=== PATIENT | male | born 1980 | race Caucasian/White ===

== ENCOUNTER 2021-05-20 02:00 | Inpatient (IN) ==
[2021-05-20] MEDS ORDERED: 0.9 % Sodium Chloride 1,000 ML IVC ONE (03:26)
[2021-05-20] MEDS ORDERED: Folic Acid 1 MG in 0.9 % Sodium Chloride 50 ML IVPB ONE (03:26)
[2021-05-20] MEDS ORDERED: Thiamine (B-1) 200 MG in 0.9 % Sodium Chloride 50 ML IVPB ONE (03:26)
[2021-05-20 03:37] LABS: Basophils # 0.1 K/mcL (0.0-0.2); Basophils % 1.3 %; Eosinophils # 0.1 K/mcL (0.0-0.6); Eosinophils % 1.5 %; Hematocrit 40.8 % (37.5-50.1); Hemoglobin 14.1 g/dL (12.9-16.9); Immature Granulocytes % 0.2 % (0-4); Lymphocytes # 1.6 K/mcL (0.6-4.6); Lymphocytes % 33.5 %; Mean Corpuscular HGB Conc 34.6 g/dL (31.6-35.5); Mean Corpuscular Hemoglobin 31.4 pg (28.0-33.3); Mean Corpuscular Volume 90.9 fL (83.0-100.0); Mean Platelet Volume 9.1 fL (9.4-12.4); Monocytes # 0.6 K/mcL (0.0-1.3); Monocytes % 12.8 %; Neutrophils # 2.4 K/mcL (1.6-8.9); Platelet Count 128 K/mcL (140-400); Red Blood Count 4.49 M/mcL (4.19-5.50); Segmented Neutrophils % 50.7 %; White Blood Count 4.7 K/mcL (4.3-11.1)
[2021-05-20] MEDS ORDERED: MVI, adult with vitamin K 10 ML, Folic Acid 1 MG, Thiamine (B-1) 200 MG in 0.9 % Sodi... IVC ONE ×3 (03:45→04:00)
[2021-05-20 03:46] LABS: Alanine Aminotransferase 171 Units/L (7-52); Albumin 5.1 g/dL (3.5-5.7); Albumin/Globulin Ratio 2.1 (1.1-2.2); Alkaline Phosphatase 79 Units/L (34-104); Aspartate Amino Transferase 255 Units/L (13-39); BUN/Creatinine Ratio 8 (6-26); Bilirubin,Direct 0.2 mg/dL (0.0-0.2); Bilirubin,Indirect 0.8 mg/dL (0.0-1.0); Blood Urea Nitrogen 6 mg/dL (6-20); Calcium 9.4 mg/dL (8.6-10.3); Carbon Dioxide 23 mEq/L (23-29); Chloride 96 mEq/L (98-107); Ethanol 403 mg/dL (Less than 10); Globulin 2.4 g/dL (2.4-3.5); Glucose 95 mg/dL (70-105); Lipase 36 Units/L (11-82); Osmolality,Calculated 281 (280-300); Potassium 3.9 mEq/L (3.5-5.1); Sodium 137 mEq/L (136-145); Total Protein 7.5 g/dL (6.4-8.9); eGFR For African Americans > 60 (> 60); eGFR For Non-African Americans > 60 (> 60)
[2021-05-20 07:47] LABS: Bilirubin,Urine Negative (Negative); Blood,Urine Negative (Negative); Clarity,Urine Clear (Clear); Color,Urine Colorless (Yellow); Glucose,Urine (UA) Normal (Normal); Ketones,Urine Negative (Negative); Leukocyte Esterase,Urine Negative (Negative); Nitrite,Urine Negative (Negative); PH,Urine 6.5 pH Units (5.0-8.0); Protein,Urine Negative (Neg-Trace); Specific Gravity,Urine 1.005 (1.010-1.025); Urobilinogen,Urine Normal (Normal)
[2021-05-20] MEDS ORDERED: Naloxone 0.4 MG/ML INJ IVP PRN (07:47)
[2021-05-20] MEDS ORDERED: *HR* HYDROcodone/Acet 5/325 mg TABLET PO PRN (07:47)
[2021-05-20 07:52] LABS: Amphetamine Screen,Urine Negative ng/mL (Cutoff=1000); Barbiturate Screen,Urine Negative ng/mL (Cutoff=200)
[2021-05-20 07:53] LABS: Benzodiazepines Screen,Urine Negative ng/mL (Cutoff=300); Cannabinoid Screen,Urine Negative ng/mL (Cutoff = 50); Cocaine Screen,Urine Negative ng/mL (Cutoff= 300); Opiate Screen,Urine Negative ng/mL (Cutoff=300); Phencyclidine Screen,Urine Negative ng/mL (Cutoff=25)
[2021-05-20] MEDS: *HR* LORazepam 2 MG/ML VIAL IVP PRN ×3 (08:19→23:53)
[2021-05-20] MEDS: 0.9 % Sodium Chloride 1,000 ML IVC SCH ×2 (08:19→19:49)
[2021-05-20 08:59] LABS: INR 0.8; Prothrombin Time 9.2 Seconds (9.4-12.1)
[2021-05-20] MEDS: Gabapentin 400 MG CAPSULE PO SCH ×3 (10:10→19:48)
[2021-05-20] MEDS ORDERED: Gabapentin 400 MG CAPSULE PO PRN (23:36)
[2021-05-21 01:18] LABS: Red Cell Distribution Width 19.3 % (11.5-14.5)
[2021-05-21 01:20] LABS: Immature Platelets 4.3 % (1.1-6.1); Mean Corpuscular HGB Conc 33.3 g/dL (31.6-35.5); Mean Corpuscular Hemoglobin 31.5 pg (28.0-33.3); Mean Corpuscular Volume 94.4 fL (83.0-100.0); Mean Platelet Volume 9.3 fL (9.4-12.4); Platelet Count 102 K/mcL (140-400); Red Blood Count 4.13 M/mcL (4.19-5.50); White Blood Count 3.4 K/mcL (4.3-11.1)
[2021-05-21 01:24] LABS: INR 0.9
[2021-05-21 01:35] LABS: Alanine Aminotransferase 127 Units/L (7-52); Albumin 4.1 g/dL (3.5-5.7); Albumin/Globulin Ratio 1.7 (1.1-2.2); Alkaline Phosphatase 98 Units/L (34-104); Aspartate Amino Transferase 172 Units/L (13-39); BUN/Creatinine Ratio 17 (6-26); Blood Urea Nitrogen 16 mg/dL (6-20); Calcium 9.3 mg/dL (8.6-10.3); Carbon Dioxide 25 mEq/L (23-29); Chloride 102 mEq/L (98-107); Globulin 2.4 g/dL (2.4-3.5); Glucose 131 mg/dL (70-105); Magnesium 1.4 mg/dL (1.6-2.6); Osmolality,Calculated 285 (280-300); Phosphorous 4.5 mg/dL (2.7-4.5); Potassium 3.9 mEq/L (3.5-5.1); Sodium 136 mEq/L (136-145); Total Protein 6.5 g/dL (6.4-8.9); eGFR For African Americans > 60 (> 60); eGFR For Non-African Americans > 60 (> 60)
[2021-05-21 03:44] LABS: Hepatitis B Surface Antigen Nonreactive (Nonreactive)
[2021-05-21 04:12] LABS: Hepatitis C Virus Antibody Nonreactive (Nonreactive)
[2021-05-21 04:13] LABS: Hepatitis B Core IgM Nonreactive (Nonreactive)
[2021-05-21 04:15] LABS: Hepatitis A Antibody IgM Nonreactive (Nonreactive)
[2021-05-21] MEDS: *HR* LORazepam 2 MG/ML VIAL IVP PRN ×4 (05:04→21:13)
[2021-05-21] MEDS: Nicotine 21 MG PATCH.TD24 TD SCH (08:07)
[2021-05-21 15:36] LABS: Basophils % 0.9 %; Eosinophils # 0.1 K/mcL (0.0-0.6); Eosinophils % 1.7 %; Immature Granulocytes % 0.3 % (0-4); Lymphocytes # 0.8 K/mcL (0.6-4.6); Lymphocytes % 22.6 %; Monocytes # 0.4 K/mcL (0.0-1.3); Monocytes % 10.4 %; Neutrophils # 2.2 K/mcL (1.6-8.9); Segmented Neutrophils % 64.1 %
[2021-05-21] MEDS: QUEtiapine Fumarate 100 MG TABLET PO SCH (20:07)
[2021-05-22 05:40] LABS: Red Cell Distribution Width 18.4 % (11.5-14.5)
[2021-05-22 05:41] LABS: Hematocrit 40.5 % (37.5-50.1); Hemoglobin 13.4 g/dL (12.9-16.9); Immature Platelets 7.5 % (1.1-6.1); Mean Corpuscular HGB Conc 33.1 g/dL (31.6-35.5); Mean Corpuscular Hemoglobin 30.9 pg (28.0-33.3); Mean Corpuscular Volume 93.5 fL (83.0-100.0); Mean Platelet Volume 10.8 fL (9.4-12.4); Red Blood Count 4.33 M/mcL (4.19-5.50); White Blood Count 3.9 K/mcL (4.3-11.1)
[2021-05-22 05:54] LABS: INR 0.9; Prothrombin Time 9.5 Seconds (9.4-12.1)
[2021-05-22 06:05] LABS: Alanine Aminotransferase 96 Units/L (7-52); Albumin 4.5 g/dL (3.5-5.7); Albumin/Globulin Ratio 1.9 (1.1-2.2); Alkaline Phosphatase 70 Units/L (34-104); Aspartate Amino Transferase 88 Units/L (13-39); BUN/Creatinine Ratio 16 (6-26); Bilirubin,Total 0.9 mg/dL (0.3-1.0); Blood Urea Nitrogen 14 mg/dL (6-20); Calcium 9.9 mg/dL (8.6-10.3); Carbon Dioxide 26 mEq/L (23-29); Chloride 101 mEq/L (98-107); Globulin 2.4 g/dL (2.4-3.5); Glucose 87 mg/dL (70-105); Magnesium 1.7 mg/dL (1.6-2.6); Osmolality,Calculated 284 (280-300); Phosphorous 4.9 mg/dL (2.7-4.5); Potassium 3.8 mEq/L (3.5-5.1); Sodium 137 mEq/L (136-145); Total Protein 6.9 g/dL (6.4-8.9); eGFR For African Americans > 60 (> 60); eGFR For Non-African Americans > 60 (> 60)
[2021-05-22] MEDS: Nicotine 21 MG PATCH.TD24 TD SCH (09:10)
[2021-05-22] MEDS: *HR* LORazepam 2 MG/ML VIAL IVP PRN ×4 (09:15→22:44)
[2021-05-22] MEDS: Ondansetron 4 MG/2 ML VIAL IVP PRN (17:45)
[2021-05-22] MEDS: QUEtiapine Fumarate 100 MG TABLET PO SCH (21:10)
[2021-05-23 01:20] LABS: Hematocrit 41.7 % (37.5-50.1); Hemoglobin 13.6 g/dL (12.9-16.9); Immature Platelets 7.7 % (1.1-6.1); Mean Corpuscular HGB Conc 32.6 g/dL (31.6-35.5); Mean Platelet Volume 10.3 fL (9.4-12.4); Red Blood Count 4.39 M/mcL (4.19-5.50); White Blood Count 5.4 K/mcL (4.3-11.1)
[2021-05-23 01:26] LABS: INR 0.8; Prothrombin Time 9.2 Seconds (9.4-12.1)
[2021-05-23 01:37] LABS: Alanine Aminotransferase 86 Units/L (7-52); Albumin 4.5 g/dL (3.5-5.7); Albumin/Globulin Ratio 1.8 (1.1-2.2); Alkaline Phosphatase 73 Units/L (34-104); Aspartate Amino Transferase 75 Units/L (13-39); BUN/Creatinine Ratio 19 (6-26); Bilirubin,Total 0.8 mg/dL (0.3-1.0); Blood Urea Nitrogen 16 mg/dL (6-20); Calcium 10.5 mg/dL (8.6-10.3); Carbon Dioxide 26 mEq/L (23-29); Chloride 102 mEq/L (98-107); Globulin 2.5 g/dL (2.4-3.5); Glucose 99 mg/dL (70-105); Magnesium 1.8 mg/dL (1.6-2.6); Osmolality,Calculated 283 (280-300); Phosphorous 5.6 mg/dL (2.7-4.5); Sodium 136 mEq/L (136-145); eGFR For African Americans > 60 (> 60); eGFR For Non-African Americans > 60 (> 60)
[2021-05-23] MEDS: Ondansetron 4 MG/2 ML VIAL IVP PRN (09:09)
[2021-05-23] MEDS: Nicotine 21 MG PATCH.TD24 TD SCH (09:09)
[2021-05-23] MEDS: *HR* LORazepam 2 MG/ML VIAL IVP PRN ×3 (09:10→23:15)
[2021-05-23] MEDS: Acetaminophen 325 MG TABLET PO PRN (09:20)
[2021-05-23 17:12] LABS: BUN/Creatinine Ratio 21 (6-26); Blood Urea Nitrogen 19 mg/dL (6-20); Calcium 10.1 mg/dL (8.6-10.3); Carbon Dioxide 25 mEq/L (23-29); Chloride 103 mEq/L (98-107); Glucose 97 mg/dL (70-105); Osmolality,Calculated 288 (280-300); Phosphorous 5.6 mg/dL (2.7-4.5); Potassium 3.9 mEq/L (3.5-5.1); Sodium 138 mEq/L (136-145); eGFR For African Americans > 60 (> 60); eGFR For Non-African Americans > 60 (> 60)
[2021-05-23] MEDS: QUEtiapine Fumarate 100 MG TABLET PO SCH (20:25)
[2021-05-24 02:09] LABS: Alanine Aminotransferase 74 Units/L (7-52); Albumin 4.3 g/dL (3.5-5.7); Albumin/Globulin Ratio 1.7 (1.1-2.2); Alkaline Phosphatase 73 Units/L (34-104); Aspartate Amino Transferase 52 Units/L (13-39); BUN/Creatinine Ratio 25 (6-26); Bilirubin,Total 0.7 mg/dL (0.3-1.0); Blood Urea Nitrogen 27 mg/dL (6-20); Calcium 9.9 mg/dL (8.6-10.3); Carbon Dioxide 23 mEq/L (23-29); Chloride 104 mEq/L (98-107); Globulin 2.6 g/dL (2.4-3.5); Glucose 112 mg/dL (70-105); Magnesium 1.7 mg/dL (1.6-2.6); Osmolality,Calculated 292 (280-300); Phosphorous 5.7 mg/dL (2.7-4.5); Potassium 3.8 mEq/L (3.5-5.1); Sodium 138 mEq/L (136-145); Total Protein 6.9 g/dL (6.4-8.9); eGFR For African Americans > 60 (> 60); eGFR For Non-African Americans > 60 (> 60)
[2021-05-24 02:15] LABS: Hemoglobin 13.2 g/dL (12.9-16.9); Mean Corpuscular Volume 95.7 fL (83.0-100.0); Mean Platelet Volume 10.2 fL (9.4-12.4); Red Cell Distribution Width 18.2 % (11.5-14.5)
[2021-05-24 02:16] LABS: Hematocrit 40.3 % (37.5-50.1); Immature Platelets 7.2 % (1.1-6.1); Mean Corpuscular HGB Conc 32.8 g/dL (31.6-35.5); Mean Corpuscular Hemoglobin 31.4 pg (28.0-33.3); Red Blood Count 4.21 M/mcL (4.19-5.50); White Blood Count 5.4 K/mcL (4.3-11.1)
[2021-05-24] MEDS: Ondansetron 4 MG/2 ML VIAL IVP PRN ×2 (06:55→14:08)
[2021-05-24] MEDS: *HR* LORazepam 2 MG/ML VIAL IVP PRN ×4 (06:55→22:33)
[2021-05-24] MEDS: Nicotine 21 MG PATCH.TD24 TD SCH (07:44)
[2021-05-24] MEDS ORDERED: *HR* LORazepam 0.5 MG TABLET PO ONE (11:57)
[2021-05-24] MEDS: Acetaminophen 325 MG TABLET PO PRN ×2 (12:02→18:29)
[2021-05-24] MEDS: QUEtiapine Fumarate 100 MG TABLET PO SCH (21:14)
[2021-05-25 01:44] LABS: Alanine Aminotransferase 59 Units/L (7-52); Albumin 4.3 g/dL (3.5-5.7); Albumin/Globulin Ratio 1.8 (1.1-2.2); Alkaline Phosphatase 63 Units/L (34-104); Aspartate Amino Transferase 36 Units/L (13-39); BUN/Creatinine Ratio 29 (6-26); Bilirubin,Total 0.7 mg/dL (0.3-1.0); Blood Urea Nitrogen 28 mg/dL (6-20); Calcium 9.8 mg/dL (8.6-10.3); Carbon Dioxide 25 mEq/L (23-29); Chloride 101 mEq/L (98-107); Globulin 2.4 g/dL (2.4-3.5); Glucose 100 mg/dL (70-105); Osmolality,Calculated 288 (280-300); Potassium 3.8 mEq/L (3.5-5.1); Sodium 136 mEq/L (136-145); Total Protein 6.7 g/dL (6.4-8.9); eGFR For African Americans > 60 (> 60); eGFR For Non-African Americans > 60 (> 60)
[2021-05-25 01:49] LABS: Hematocrit 38.3 % (37.5-50.1); Hemoglobin 12.9 g/dL (12.9-16.9); Mean Corpuscular HGB Conc 33.7 g/dL (31.6-35.5); Mean Platelet Volume 10.1 fL (9.4-12.4); Platelet Count 141 K/mcL (140-400); Red Blood Count 4.03 M/mcL (4.19-5.50); Red Cell Distribution Width 17.6 % (11.5-14.5); White Blood Count 5.3 K/mcL (4.3-11.1)
[2021-05-25] MEDS: Acetaminophen 325 MG TABLET PO PRN ×2 (07:05→14:42)
[2021-05-25] MEDS: *HR* LORazepam 2 MG/ML VIAL IVP PRN ×4 (07:06→22:15)
[2021-05-25] MEDS: Ondansetron 4 MG/2 ML VIAL IVP PRN ×2 (07:06→14:42)
[2021-05-25] MEDS: Nicotine 21 MG PATCH.TD24 TD SCH (07:07)
[2021-05-25] MEDS: QUEtiapine Fumarate 100 MG TABLET PO SCH (22:15)
[2021-05-25] MEDS: Melatonin 3 MG TABLET PO PRN (22:16)
[2021-05-26] MEDS: *HR* LORazepam 2 MG/ML VIAL IVP PRN ×4 (00:54→20:33)
[2021-05-26 01:35] LABS: Hematocrit 39.8 % (37.5-50.1); Hemoglobin 13.1 g/dL (12.9-16.9); Mean Corpuscular HGB Conc 32.9 g/dL (31.6-35.5); Mean Corpuscular Hemoglobin 31.5 pg (28.0-33.3); Mean Corpuscular Volume 95.7 fL (83.0-100.0); Mean Platelet Volume 9.8 fL (9.4-12.4); Platelet Count 170 K/mcL (140-400); Red Blood Count 4.16 M/mcL (4.19-5.50); Red Cell Distribution Width 17.5 % (11.5-14.5); White Blood Count 4.7 K/mcL (4.3-11.1)
[2021-05-26 01:55] LABS: Alanine Aminotransferase 48 Units/L (7-52); Albumin 4.3 g/dL (3.5-5.7); Alkaline Phosphatase 57 Units/L (34-104); Aspartate Amino Transferase 31 Units/L (13-39); BUN/Creatinine Ratio 21 (6-26); Bilirubin,Total 0.6 mg/dL (0.3-1.0); Blood Urea Nitrogen 23 mg/dL (6-20); Calcium 9.6 mg/dL (8.6-10.3); Carbon Dioxide 26 mEq/L (23-29); Chloride 101 mEq/L (98-107); Globulin 2.2 g/dL (2.4-3.5); Glucose 95 mg/dL (70-105); Osmolality,Calculated 285 (280-300); Sodium 136 mEq/L (136-145); Total Protein 6.5 g/dL (6.4-8.9); eGFR For African Americans > 60 (> 60); eGFR For Non-African Americans > 60 (> 60)
[2021-05-26] MEDS: Ondansetron 4 MG/2 ML VIAL IVP PRN (07:56)
[2021-05-26] MEDS: Acetaminophen 325 MG TABLET PO PRN ×2 (07:57→20:33)
[2021-05-26] MEDS: Nicotine 21 MG PATCH.TD24 TD SCH (07:57)
[2021-05-26] MEDS: Melatonin 3 MG TABLET PO PRN (22:27)
[2021-05-26] MEDS: QUEtiapine Fumarate 100 MG TABLET PO SCH (22:27)
[2021-05-27] MEDS: Ondansetron 4 MG/2 ML VIAL IVP PRN ×2 (05:30→13:26)
[2021-05-27] MEDS ORDERED: hydrOXYzine pamoate 25 MG CAPSULE PO ONE (06:16)
[2021-05-27] MEDS: *HR* LORazepam 2 MG/ML VIAL IVP PRN (08:50)
[2021-05-27] MEDS: Nicotine 21 MG PATCH.TD24 TD SCH (08:54)
[2021-05-27 09:38] LABS: Hematocrit 41.2 % (37.5-50.1); Hemoglobin 13.6 g/dL (12.9-16.9); Mean Corpuscular Hemoglobin 31.3 pg (28.0-33.3); Mean Corpuscular Volume 94.7 fL (83.0-100.0); Mean Platelet Volume 9.2 fL (9.4-12.4); Platelet Count 242 K/mcL (140-400); Red Blood Count 4.35 M/mcL (4.19-5.50); White Blood Count 3.2 K/mcL (4.3-11.1)
[2021-05-27] MEDS ORDERED: polyethylene glycoL 3350 17 GM POWD.PACK PO PRN (12:16)
[2021-05-27] MEDS: Acetaminophen 325 MG TABLET PO PRN (13:27)
[2021-05-27] MEDS: hydrOXYzine pamoate 25 MG CAPSULE PO PRN (17:36)
[2021-05-27] MEDS: QUEtiapine Fumarate 100 MG TABLET PO SCH (21:39)
[2021-05-28] MEDS: hydrOXYzine pamoate 25 MG CAPSULE PO PRN (05:42)
[2021-05-28 06:17] VITALS: BP 108/72; PULSE 75; TEMP 98.5; O2SAT 95
== END 2021-05-28 08:03 | disposition home or self-care (01) | DRG 775 ==
LOC: 3BNU 02:00 → EMEROOARM 02:00 → SUATTDRO 07:05 → 3BNU 08:04 → SUATTDRO 05-21 14:56 → 3BNU 05-24 19:19
PROVIDERS: ADMIT Family Medicine; ATTEND Nurse Practitioner

== ENCOUNTER 2021-07-03 02:08 | Inpatient (IN) ==
[2021-07-03] MEDS ORDERED: *HR* LORazepam 1 MG TABLET PO ONE (03:00)
[2021-07-03] MEDS ORDERED: Ondansetron 4 MG/2 ML VIAL IVP ONE (03:06)
[2021-07-03 03:46] LABS: Basophils # 0.1 K/mcL (0.0-0.2); Basophils % 0.6 %; Eosinophils % 0.4 %; Hematocrit 41.8 % (37.5-50.1); Hemoglobin 14.3 g/dL (12.9-16.9); Immature Granulocytes % 0.2 % (0-4); Lymphocytes # 1.2 K/mcL (0.6-4.6); Lymphocytes % 14.4 %; Mean Corpuscular HGB Conc 34.2 g/dL (31.6-35.5); Mean Corpuscular Hemoglobin 31.6 pg (28.0-33.3); Mean Corpuscular Volume 92.3 fL (83.0-100.0); Monocytes # 0.4 K/mcL (0.0-1.3); Monocytes % 4.9 %; Neutrophils # 6.6 K/mcL (1.6-8.9); Platelet Count 173 K/mcL (140-400); Red Blood Count 4.53 M/mcL (4.19-5.50); Red Cell Distribution Width 15.3 % (11.5-14.5); Segmented Neutrophils % 79.5 %; White Blood Count 8.3 K/mcL (4.3-11.1)
[2021-07-03 04:05] LABS: BUN/Creatinine Ratio 11 (6-26); Blood Urea Nitrogen 10 mg/dL (6-20); Calcium 8.9 mg/dL (8.6-10.3); Carbon Dioxide 16 mEq/L (23-29); Chloride 92 mEq/L (98-107); Ethanol 27 mg/dL (Less than 10); Glucose 55 mg/dL (70-105); Osmolality,Calculated 277 (280-300); Potassium 4.3 mEq/L (3.5-5.1); Sodium 135 mEq/L (136-145); eGFR For African Americans > 60 (> 60); eGFR For Non-African Americans > 60 (> 60)
[2021-07-03 05:55] LABS: Amphetamine Screen,Urine Negative ng/mL (Cutoff=1000); Barbiturate Screen,Urine Negative ng/mL (Cutoff=200); Benzodiazepines Screen,Urine Negative ng/mL (Cutoff=200); Cannabinoid Screen,Urine Negative ng/mL (Cutoff = 50); Cocaine Screen,Urine Negative ng/mL (Cutoff= 300); Opiate Screen,Urine Negative ng/mL (Cutoff=300); Phencyclidine Screen,Urine Negative ng/mL (Cutoff=25)
[2021-07-03] MEDS ORDERED: Naloxone 0.4 MG/ML INJ IVP PRN (06:03)
[2021-07-03] MEDS ORDERED: *HR* LORazepam 2 MG/ML VIAL IVP PRN ×2 (06:31)
[2021-07-03] MEDS: Vitamin B Complex/Vit C/Vit E 1 EACH TABLET PO SCH (08:09)
[2021-07-03] MEDS: Nicotine 14 MG PATCH.TD24 TD SCH ×2 (08:09→09:04)
[2021-07-03] MEDS: *HR* LORazepam 2 MG/ML VIAL IVP PRN ×3 (09:03→20:05)
[2021-07-03] MEDS: Thiamine (B-1) 200 MG in 0.9 % Sodium Chloride 50 ML IVPB SCH (09:03)
[2021-07-03] MEDS: 0.9 % Sodium Chloride 1,000 ML IVC SCH (11:31)
[2021-07-03] MEDS ORDERED: Acetaminophen 325 MG TABLET PO PRN (14:46)
[2021-07-03] MEDS: QUEtiapine Fumarate 100 MG TABLET PO SCH (20:00)
[2021-07-04] MEDS: *HR* LORazepam 2 MG/ML VIAL IVP PRN ×4 (00:06→21:26)
[2021-07-04 02:03] LABS: Basophils % 0.2 %; Eosinophils # 0.1 K/mcL (0.0-0.6); Eosinophils % 1.6 %; Hematocrit 38.7 % (37.5-50.1); Hemoglobin 13.6 g/dL (12.9-16.9); Immature Granulocytes % 0.2 % (0-4); Lymphocytes # 1.6 K/mcL (0.6-4.6); Lymphocytes % 24.9 %; Mean Corpuscular HGB Conc 35.1 g/dL (31.6-35.5); Mean Corpuscular Volume 91.1 fL (83.0-100.0); Mean Platelet Volume 9.3 fL (9.4-12.4); Monocytes # 0.5 K/mcL (0.0-1.3); Monocytes % 7.9 %; Neutrophils # 4.2 K/mcL (1.6-8.9); Platelet Count 176 K/mcL (140-400); Red Blood Count 4.25 M/mcL (4.19-5.50); Red Cell Distribution Width 15.1 % (11.5-14.5); Segmented Neutrophils % 65.2 %; White Blood Count 6.4 K/mcL (4.3-11.1)
[2021-07-04 02:21] LABS: BUN/Creatinine Ratio 16 (6-26); Blood Urea Nitrogen 17 mg/dL (6-20); Calcium 9.6 mg/dL (8.6-10.3); Carbon Dioxide 27 mEq/L (23-29); Chloride 102 mEq/L (98-107); Glucose 104 mg/dL (70-105); Magnesium 1.7 mg/dL (1.6-2.6); Osmolality,Calculated 288 (280-300); Potassium 3.7 mEq/L (3.5-5.1); Sodium 138 mEq/L (136-145); eGFR For African Americans > 60 (> 60); eGFR For Non-African Americans > 60 (> 60)
[2021-07-04] MEDS: 0.9 % Sodium Chloride 1,000 ML IVC SCH (02:24)
[2021-07-04] MEDS: Vitamin B Complex/Vit C/Vit E 1 EACH TABLET PO SCH (08:20)
[2021-07-04] MEDS: Nicotine 14 MG PATCH.TD24 TD SCH (08:20)
[2021-07-04] MEDS: Thiamine (B-1) 200 MG in 0.9 % Sodium Chloride 50 ML IVPB SCH (08:23)
[2021-07-04] MEDS: QUEtiapine Fumarate 100 MG TABLET PO SCH (20:46)
[2021-07-05] VITALS: BP 157/90; PULSE 106; TEMP 97.8; O2SAT 97
== END 2021-07-05 01:39 | disposition left against medical advice (07) | DRG 770 ==
LOC: 3BNU 02:08 → EMEROOARM 02:08 → SUATTDRO 05:48 → 3BNU 06:57
PROVIDERS: ADMIT Internal Medicine; ATTEND Internal Medicine